=== PATIENT | male | born 1930 | race Caucasian/White ===

== ENCOUNTER 2018-07-04 15:22 | Emergency (ER) | payer OTHER ==
[~2018-07-04] VITALS: Ht 203.2 cm; Wt 75.3 kg
[~2018-07-04 15:22] MED LIST: ACETAMINOPHEN-1 EAC1; ADULT LOW DOSE81 MG PO; AMBEREN PO; FISH OIL 1,0001 EAC5 PO; FLEXERIL PO; FOLIC ACID PO; IBUPROFEN 600600 M1 PO; LANTUS SQ; MOBIC7.5 M1 PO; NORCO 5-325 TA1 EACH PO; OXYIR5 MG PO; RANITIDINE PO; TOPROL XL25 MG PO; VITAMIN D1000 UNI1 PO; ZESTRIL PO; ZOCOR 10 MG TAB10 MG PO
[2018-07-04] MEDS ORDERED: CO Q-10100 MG PO (15:43)
[2018-07-04] MEDS ORDERED: VITAMIN D3400 UNI1 PO (15:44)
[2018-07-04 18:48] VITALS: BP 101/58
== END 2018-07-04 18:48 | disposition home or self-care (01) ==
LOC: M.ERS 15:22
DX: K59.00 Constipation, unspecified (principal); I10 Essential (primary) hypertension; E11.9 Type 2 diabetes mellitus without complications; E78.00 Pure hypercholesterolemia, unspecified; K21.9 Gastro-esophageal reflux disease without esophagitis; Z79.4 Long term (current) use of insulin